=== PATIENT | female | born 1955 | race Caucasian/White ===

== ENCOUNTER 2016-03-18 14:47 | Emergency (ER) | payer BC ==
[~2016-03-18 14:47] MED LIST: AMBIEN5 MG PO; BENADRYL CREA28.3 GM TP; BENADRYL INJ50 MG/ML IV; BENADRYL50 MG PO; CHLORASEPTIC S180 ML MM; CHLORASEPTIC177 ML MM; COLACE100 MG PO; COUMADIN5 MG PO; COUMADIN7.5 MG PO; DILAUDID8 MG PO; DULCOLAX10 MG/SUPP RC; DULCOLAX5 MG PO; ENDOCET 10-3251 TAB PO; EXCEDRIN PO; KLONOPIN1 MG PO; LISINOPRIL10 MG PO; LOVENOX40 MG/0.4 SQ; MILK OF MAGNESI30 ML PO; MIRALAX17 GM PO; MS CONTIN30 MG PO; NARCAN0.4 MG/ML IV; NEURONTIN600 MG PO; NORCO 10/325 TA1 TA1 PO; ONDANSETRON4 MG/2 M3 IV; OXYCODONE HCL5 MG PO; OXYCONTIN10 MG PO; OXYCONTIN20 MG PO; OYST-CAL-5001 TAB PO; PERCOCET 10/3251 TA1 PO; PERCOCET 5/3251 TA1 PO; PRINIVIL20 MG PO; PROTONIX40 MG PO; SALINE FLUSH10 ML IV; SENOKOT-S TABLE1 TAB PO; SODIUM CL 0.41000 ML IV; SODIUM CL 0.91000 ML IV; SOMA350 MG PO; TEFLARO600 MG IV; TORADOL30 MG/ML IV; TRAZODONE HCL150 MG PO; TYLENOL 325 MG325 MG PO; VOLTAREN100 GM TP; ZESTORETIC 20/21 TAB PO; ZINC OXIDE 20 %30 GM TP; ZOCOR40 MG PO; ZOFRAN4 MG PO; ZOLOFT50 MG PO
[2016-03-18 19:32] LABS: APPEARANCE CLEAR (CLEAR); BILIRUBIN NEGATIVE (NEGATIVE); COLOR YELLOW (YELLOW); GLUCOSE NEGATIVE (NEGATIVE); KETONE NEGATIVE (NEGATIVE); LEUKOCYTE ESTERASE NEGATIVE (NEGATIVE); NITRITE NEGATIVE (NEGATIVE); PROTEIN NEGATIVE (NEGATIVE); SPECIFIC GRAVITY 1.015 (1.005-1.020); UROBILINOGEN NORMAL (NORMAL)
== END 2016-03-18 21:19 | disposition home or self-care (01) ==
LOC: D.ER 14:47
PROVIDERS: Nurse Practitioner Acute Care
DX: R30.0 Dysuria (principal); T36.95XA Adverse effect of unspecified systemic antibiotic, initial encounter; Y92.019 Unspecified place in single-family (private) house as the place of occurrence of the external cause; I10 Essential (primary) hypertension